=== PATIENT | male | born 1945 | race Hispanic/Latino ===

== ENCOUNTER → 2017-07-15 | Outpatient (CLI) | payer OTHER, MEDICARE ==
[~2017-07-15] MED LIST: AMIO200T2 PO; ATOR10 PO; BUPR150T8 PO; CARV3.12 PO; FOLI1CAP16 PO; FOLI1TAB36 PO; FOLI1TAB85 PO; FURO20TA6 PO; HYDR-4060 PO; IPRA3AMP4 IH; LEVO25TA54 PO; MUPI22OI2 TP; OMEP40CA37 PO; ROPI1TAB11 PO; STAL100 PO; WARF-67 PO; [UNRECOGNIZED DRUG - CODE] PO
== END | disposition home or self-care (01) ==
LOC: RAH 13:39
PROVIDERS: ATTEND Internal Medicine
DX: S20.20XA Contusion of thorax, unspecified, initial encounter (principal); X58.XXXA Exposure to other specified factors, initial encounter; Y93.89 Activity, other specified; Y92.89 Other specified places as the place of occurrence of the external cause; Y99.8 Other external cause status
CPT/HCPCS: 71046; 71100